=== PATIENT | male | born 1950 | race Caucasian/White ===

== ENCOUNTER 2016-06-15 09:18 | Outpatient (CLI) | payer BC, MEDICARE ==
[2015-05-16 09:24] VITALS: BP 120/70
[2016-06-15 09:36] LABS: BASOPHILS % 0.3 (0.0-1.5); EOSINOPHILS % 3.5 % (0.0-6.8); LYMPHOCYTES # 1.9 # k/uL (0.6-4.0); MEAN CORPUSCULAR HEMOGLOBIN 27.9 pg (28.0-34.0); MONOCYTES # 0.4 # k/uL (0.0-0.9); MONOCYTES % 6.3 % (0.0-11.0); NEUTROPHILS # 4.1 # k/uL (1.4-7.7)
[2016-06-15 10:11] LABS: eGFR (African) > 60; eGFR (Non-African) > 60
== END 2016-06-15 09:20 ==
LOC: LAB 09:18
PROVIDERS: ATTEND Family Medicine
DX: I10 Essential (primary) hypertension (principal); Z51.81 Encounter for therapeutic drug level monitoring; E78.5 Hyperlipidemia, unspecified; N40.1 Benign prostatic hyperplasia with lower urinary tract symptoms
CPT/HCPCS: 36415; 80053; 80061; 84153; 85025

== ENCOUNTER 2016-11-28 10:27 | Outpatient (CLI) | payer BC, MEDICARE ==
[2015-05-16 09:24] VITALS: BP 120/70
== END 2016-11-28 10:30 ==
LOC: LAB 10:27
PROVIDERS: ATTEND Family Medicine
DX: E55.9 Vitamin D deficiency, unspecified (principal); M79.1 Myalgia
CPT/HCPCS: 36415; 82306; 85651; 86431

== ENCOUNTER 2017-11-15 10:14 | Outpatient (CLI) | payer BC, MEDICARE ==
[2015-05-16 09:24] VITALS: BP 120/70
[2017-11-15 11:22] LABS: BASOPHILS % 0.4 (0.0-1.5); EOSINOPHILS % 3.5 % (0.0-6.8); MEAN CORPUSCULAR HEMOGLOBIN 28.5 pg (28.0-34.0); MEAN CORPUSCULAR VOLUME 85.5 fl (80.0-100.0); MONOCYTES % 6.7 % (0.0-11.0); NEUTROPHILS # 3.4 # k/uL (1.4-7.7)
[2017-11-15 11:35] LABS: eGFR (African) > 60; eGFR (Non-African) > 60
== END 2017-11-15 10:19 ==
LOC: LAB 10:14
PROVIDERS: ATTEND Family Medicine
DX: I10 Essential (primary) hypertension (principal); N40.1 Benign prostatic hyperplasia with lower urinary tract symptoms; E78.5 Hyperlipidemia, unspecified
CPT/HCPCS: 36415; 80053; 80061; 84153; 85025

== ENCOUNTER 2018-11-17 10:12 | Outpatient (CLI) | payer BC, MEDICARE ==
[2015-05-16 09:24] VITALS: BP 120/70
[2018-11-17 10:38] LABS: BASOPHILS % 0.4 % (0.0-1.5); NEUTROPHILS # 3.7 # k/uL (1.4-7.7)
[2018-11-17 11:07] LABS: HDL 51 mg/dL (>40); eGFR (Non-African) > 60
== END 2018-11-17 10:14 ==
LOC: LAB 10:12
PROVIDERS: ATTEND Family Medicine
DX: I10 Essential (primary) hypertension (principal)
CPT/HCPCS: 36415; 80053; 80061; 84153; 85025